=== PATIENT | female | born 1955 | race Caucasian/White ===

== ENCOUNTER 2017-09-02 14:58 | Emergency (ER) | payer BC ==
[~2017-09-02] VITALS: Ht 165.1 cm; Wt 73.3 kg
[2017-09-02 16:31] LABS: HEMATOCRIT 37.9 % (36.0-46.0); HEMOGLOBIN 12.8 G/DL (11.9-15.5); MCHC 33.8 G/DL (30.0-36.0); MCV 88.8 FL (83-99); PLATELET COUNT 198 K/uL (156-360); RBC DIS.WIDTH-CV 12.5 % (11.8-14.6); RBC DIS.WIDTH-SD 40.4 % (39-53); RED BLOOD COUNT 4.27 M/uL (3.80-5.20); WHITE BLOOD COUNT 10.3 K/uL (4.1-10.2)
[2017-09-02 16:39] LABS: CHLORIDE 98 mEq/L (99-109); POTASSIUM 3.9 mEq/L (3.7-5.4); SODIUM 138 mEq/L (136-147)
[2017-09-02 16:41] LABS: GLUCOSE 105 mg/dL (70-99)
[2017-09-02 16:45] LABS: CREATININE 1.1 mg/dL (0.6-1.3); GFR ESTIMATE (CALCULATED) 53 mL/min/
[2017-09-02 16:46] LABS: UREA NITROGEN (BUN) 22 mg/dL (9-23)
[2017-09-02 16:52] LABS: TROP-I INTERPRETATION NEGATIVE; TROPONIN-I < 0.01 ng/mL (0.0-0.30)
[2017-09-02 19:13] VITALS: BP 118/64
== END 2017-09-02 19:14 | disposition home or self-care (01) ==
LOC: EME 14:58
PROVIDERS: Emergency Medicine
DX: E86.0 Dehydration (principal); R55 Syncope and collapse; I10 Essential (primary) hypertension; E78.5 Hyperlipidemia, unspecified; K21.9 Gastro-esophageal reflux disease without esophagitis; Z88.0 Allergy status to penicillin
CPT/HCPCS: 71046; 80048; 84484; 85027; 93005; 99281; 99285; J7030